=== PATIENT | female | born 1950 | race Caucasian/White ===

== ENCOUNTER → 2017-06-19 | Outpatient (CLI) | payer OTHER ==
[2015-02-24 21:02] VITALS: BP 144/78
--- NOTE | 2017-06-19 15:57 | RAD ---
Acute abdominal series Indication: Fall with right-sided pain Comparison: None available Findings: The trachea is midline. The cardiac silhouette is unremarkable. The lungs are clear without focal i nfiltrate or effusion. The bony thorax is unremarkable. Flat and upright evaluation of the abdomen demonstrates a normal bowel gas pattern. No pathological soft tissue mass or calcification can be observed. The bony structures are grossly intact. IMPRESSION: 1. No acute cardiopulmonary disease. 2. No evidence for acute abdominal pathology identified. Reported By:
== END ==
LOC: RAD 15:25
PROVIDERS: ATTEND Nurse Practitioner Family
DX: R10.11 Right upper quadrant pain (principal)
CPT/HCPCS: 74022

== ENCOUNTER → 2017-06-21 | Outpatient (CLI) | payer OTHER ==
[2015-02-24 21:02] VITALS: BP 144/78
--- NOTE | 2017-06-21 16:12 | RAD ---
Rib [id number] four views Indication: Pain after fall. Findings: There is COPD change with hyperinflation. Heart size is normal. There is no pneumothorax. N o cortical lucency seen. Impression: COPD change suggested without acute rib fracture identified. Reported By:
== END ==
LOC: RAD 14:07
PROVIDERS: ATTEND Nurse Practitioner Family
DX: R10.11 Right upper quadrant pain (principal); R07.81 Pleurodynia
CPT/HCPCS: 71111